=== PATIENT | female | born 1975 | race Caucasian/White ===

== ENCOUNTER 2017-09-26 13:16 | Day surgery (SDC) | payer BC ==
[2017-09-26] MEDS ORDERED: Lactated Ringers 1,000 ML IV SCH ×2 (13:30→14:45)
--- NOTE | 2017-09-26 14:06 | PCM.PREANE ---
Preanesthetic Assessment - Anesthesia/Transfusion/Family Hx Anesthesia History: No Prior Anesthesia Family History of Anesthesia Reaction: No Transfusion History: No Prior Transfusion(s) - Review of Systems General: No Symptoms Pulmonary: No Symptoms Cardiovascular: No Symptoms Gastrointestinal: No Symptoms Neurological: No Symptoms Other: Reports: None - Physical Assessment NPO Status Date: 09/25/17 O2 Sat by Pulse Oximetry: 99 Respiratory Rate: 16 Vital Signs: Last Vital Signs Temp 36.3 C 09/26/17 14:02 Pulse 72 09/26/17 14:02 Resp 16 09/26/17 14:02 BP 131/61 09/26/17 14:02 Pulse Ox 99 09/26/17 14:02 Height: 1.52 m Weight: 75.75 kg ASA Class: 1 Mental Status: Alert & Oriented x3 Airway Class: Mallampati = 1 Dentition: Reports: Normal Dentition ROM/Head Extension: Full Lungs: Clear to Auscultation, Normal Respiratory Effort Cardiovascular: Regular Rate, Regular Rhythm - Lab Values: Laboratory Last Values WBC 7.12 K/uL (4.0-11.0) 09/26/17 13:48 RBC 4.37 M/uL (4.30-5.90) 09/26/17 13:48 Hgb 13.1 g/dL (12.0-16.0) 09/26/17 13:48 Hct 37.9 % (36.0-46.0) 09/26/17 13:48 MCV 86.7 fL (80.0-98.0) 09/26/17 13:48 MCH 30.0 pg (27.0-32.0) 09/26/17 13:48 MCHC 34.6 g/dL (31.0-37.0) 09/26/17 13:48 RDW Std Deviation 44.2 fl (28.0-62.0) 09/26/17 13:48 RDW Coeff of Brenda 14 % (11.0-15.0) 09/26/17 13:48 Plt Count 295 K/uL (150-400) 09/26/17 13:48 MPV 10.00 fL (7.40-12.00) 09/26/17 13:48 Nucleated RBC % 0.0 /100WBC 09/26/17 13:48 Nucleated RBCs # 0 K/uL 09/26/17 13:48 - Allergies Allergies/Adverse Reactions: Allergies Allergy/AdvReac Type Severity Reaction Status Date / Time No Known Allergies Allergy Verified 09/25/17 10:08 - Anesthesia Plan Pre-Op Medication Ordered: None - Acknowledgements Anesthesia Type Planned: General Anesthesia Pt an Appropriate Candidate for the Planned Anesthesia: Yes Alternatives and Risks of Anesthesia Discussed w Pt/Guardian: Yes Pt/Guardian Understands and Agrees with Anesthesia Plan: Yes PreAnesthesia Questionnaire Musculoskeletal History: Reports: Fracture Other Musculoskeletal History: hx of fx arm Endocrine/Metabolic History: Reports: Obesity/BMI 30+ - SUBSTANCE USE Smoking Status *Q: Never Smoker Recreational Drug Use History: No - HOME MEDS Home Medications: Home Meds Multivitamin [Multivitamins] 1 tab PO DAILY 09/25/17 [History] - CURRENT (IN HOUSE) MEDS Current Meds: Current Medications Lactated Ringer's (Ringers, Lactated) 1,000 mls @ 100 mls/hr IV ASDIRECTED [facility] Last Admin: 09/26/17 14:04 Dose: 100 mls/hr
[2017-09-26] MEDS ORDERED: Propofol 200 MG/20 ML SDV ONE (14:21)
[2017-09-26] MEDS ORDERED: Ondansetron 4 MG/2 ML SDV ONE (14:21)
[2017-09-26] MEDS ORDERED: Lidocaine 2% 5 ML SDV ONE (14:21)
[2017-09-26] MEDS ORDERED: Midazolam 1 MG/ML 2 ML SDV ONE (14:21)
[2017-09-26] MEDS ORDERED: fentaNYL 100 MCG/2 ML SDV ONE (14:21)
[2017-09-26] MEDS ORDERED: Sodium Chloride 0.9% 2.5 ML Syringe FLUSH PRN (14:45)
[2017-09-26] MEDS ORDERED: fentaNYL 100 MCG/2 ML SDV IVPUSH PRN (14:45)
[2017-09-26] MEDS ORDERED: Sodium Chloride 0.9% 10 ML Syringe FLUSH PRN (14:45)
--- NOTE | 2017-09-26 15:58 | PCM.POSTAN ---
POST ANESTHESIA ASSESSMENT - MENTAL STATUS Mental Status: Alert, Oriented - RESPIRATORY Respiratory Status: Respiratory Rate WNL, Airway Patent, O2 Saturation Stable - CARDIOVASCULAR CV Status: Pulse Rate WNL, Blood Pressure Stable - GASTROINTESTINAL GI Status: No Symptoms - POST OP HYDRATION Hydration Status: Adequate & Stable
--- NOTE | 2017-09-26 16:19 | PCM.OPNOTE ---
- General Post-Op/Procedure Note Date of Surgery/Procedure: 09/26/17 Operative Procedure(s): Suction D&C Findings: Products of conception--on frozen path specimen, chorionic villi present Pre Op Diagnosis: Abnormally rising quant hcg levels. Early miscarriage vs ectopic Post-Op Diagnosis: Completed SAB Anesthesia Technique: General LMA Primary Surgeon: Rosalva Shukla Fluid Replacement, Intraop: 1,500 EBL in mLs: 15 Complications: none known Condition: Good Free Text/Narrative:: Intake & Output 09/26/17 09/26/17 09/26/17 06:59 14:59 22:59 Intake Total 1999 Balance 1999 Dictation [id number]
--- NOTE | 2017-09-26 16:21 | PCM48HPAN ---
Post Anesthesia Note - EVALUATION WITHIN 48HRS OF ANESTHETIC Vital Signs in Normal Range: Yes Patient Participated in Evaluation: Yes Respiratory Function Stable: Yes Airway Patent: Yes Cardiovascular Function Stable: Yes Hydration Status Stable: Yes Pain Control Satisfactory: Yes Nausea and Vomiting Control Satisfactory: Yes Mental Status Recovered: Yes Resp Rate: 14
--- NOTE | 2017-09-29 15:28 | OR ---
SURGEON: Rosalva Shukla M.D. DATE OF PROCEDURE: 09/26/2017 PREOPERATIVE DIAGNOSES: 1. Abnormally rising quantitative HCG levels. 2. Early miscarriage versus ectopic . POSTOPERATIVE DIAGNOSIS: Completed spontaneous . ANESTHESIA: General LMA. ESTIMATED BLOOD LOSS: 15 mL. FLUIDS: 1500 mL crystalloid. COMPLICATIONS: None. FINDINGS: Products of conception with frozen pathology. Chorionic villi is present within the specimen, confirming an intrauterine . DISPOSITION: The patient to PACU, stable. PROCEDURE IN DETAIL: This is a 42-year-old female, who has been evaluated in clinic for bleeding in the first trimester. It was noted that she only had a single empty intrauterine gestational sac in the lower uterine segment on ultrasound serially. Adnexa appeared normal. However, quantitative hCG levels have been slowly climbing, but not rising normally, fairly stagnant overall. Therefore, at this juncture, I had discussed with the patient the concerns for possible ectopic gestation and that further evaluation with D and C to see whether or not chorionic villi is present within the endometrial cavity, would help us decide whether this is an intrauterine gestation or ectopic. She understand that the is not developing normally. The patient voiced understanding. Proper consent obtained. The patient taken to the operating room, where she underwent general LMA, was placed in modified dorsolithotomy position, was prepped and draped in the usual sterile fashion. SCDs to lower extremities. Time-out was performed after bladder being drained. A speculum was introduced in the vagina. Cervix was visualized. Anterior lip of cervix was grasped with an Allis clamp. The cervix gently dilated to 8 mm. Using a 7 mm curved curette, the endometrial cavity was emptied of products of conception. These will be sent fresh to Pathology for frozen analysis. Gentle curettage was also performed. The uterus was felt to be adequately evacuated. Hemostasis appears evident. All instruments were removed from the vagina. Sponge, instrument, and needle count was correct x2. The patient tolerated the procedure well. The pathologist did call back and note there is chorionic villi present in the specimen, this does confirm an intrauterine gestation. JANEE / CONRAD /[id number]
== END 2017-09-26 17:02 | disposition home or self-care (01) ==
LOC: MW.SDS 13:16
PROVIDERS: ATTEND Obstetrics & Gynecology
DX: O03.9 Complete or unspecified spontaneous abortion without complication (principal); Z79.899 Other long term (current) drug therapy
CPT/HCPCS: 36415; 59812; 85027; J2250; J2405; J3010; J7120; 01965; 88305; 88331; J2704

== ENCOUNTER 2018-11-25 03:04 | Inpatient (IN) | payer BC ==
[2018-11-25] MEDS ORDERED: Terbutaline 1 MG/ML SDV SUBCUT PRN (10:54)
[2018-11-25] MEDS ORDERED: Sodium Chloride 0.9% 10 ML Syringe FLUSH PRN (10:54)
[2018-11-25] MEDS ORDERED: Tranexamic Acid 1,000 MG in Sodium Chloride 0.9% 100 ML IV PRN (10:54)
[2018-11-25] MEDS ORDERED: Carboprost Tromethamine 250 MCG/1 ML Amp IM PRN (10:54)
[2018-11-25] MEDS ORDERED: Methylergonovine 0.2 MG/1 ML Amp IM PRN (10:54)
[2018-11-25] MEDS ORDERED: Sodium Chloride 0.9% 2.5 ML Syringe FLUSH PRN (10:54)
[2018-11-25] MEDS ORDERED: Misoprostol 200 MCG Tab PO PRN (10:54)
[2018-11-25] MEDS ORDERED: Butorphanol 1 MG/ML SDV IVPUSH PRN (10:54)
[2018-11-25] MEDS ORDERED: Sodium Chloride 0.9% 10 ML SDV IV PRN (10:54)
[2018-11-25] MEDS ORDERED: Lidocaine 1% 50 ML MDV INJECT PRN (10:54)
[2018-11-25] MEDS ORDERED: Nalbuphine 10 MG/1 ML Vial IVPUSH PRN (10:54)
[2018-11-25] MEDS ORDERED: Water For Irrigation,Sterile 1,000 ML Container IRR PRN (10:54)
[2018-11-25] MEDS ORDERED: Oxytocin/0.9 % Sodium Chloride 30 UNIT/500 ML BAG IV SCH ×2 (11:00)
[2018-11-25] MEDS ORDERED: Lactated Ringers 1,000 ML IV SCH (11:00)
[2018-11-25] MEDS: Misoprostol 25 MCG (1/4 of 100 MCG) Tab VAG PRN ×2 (11:52→16:03)
[2018-11-26] MEDS ORDERED: Ondansetron 4 MG/2 ML SDV IVPUSH PRN (03:48)
[2018-11-26] MEDS ORDERED: Ibuprofen 400 MG Tab PO PRN (03:48)
[2018-11-26] MEDS ORDERED: Acetaminophen 500 MG Tab PO PRN ×2 (03:48)
[2018-11-26] MEDS ORDERED: Ibuprofen 800 MG Tab PO PRN (03:48)
[2018-11-26] MEDS ORDERED: oxyCODONE 5 MG Tab PO PRN (03:48)
[2018-11-26] MEDS ORDERED: Benzocaine/Menthol 20%-0.5% Spray 78 GM Cannister TOP PRN (03:48)
[2018-11-26] MEDS ORDERED: Docusate Sodium 100 MG Cap PO PRN (03:48)
[2018-11-26] MEDS ORDERED: Witch Hazel Medicated Pads 40/Jar TOP PRN (03:48)
[2018-11-26] MEDS ORDERED: Lanolin 100% Cream 7 GM Tube TOP PRN (03:48)
[2018-11-26] MEDS ORDERED: Bisacodyl 10 MG Supp RECTAL PRN (03:48)
--- NOTE | 2018-11-26 04:22 | OR ---
SURGEON: Rosalva Shukla M.D. DATE OF PROCEDURE: 11/26/2018 PREOPERATIVE DIAGNOSES: 1. A 38 and 4/7th weeks' intrauterine . 2. Gestational hypertension. 3. Advanced maternal age. POSTOPERATIVE DIAGNOSES: 1. A 38 and 4/7th weeks' intrauterine . 2. Gestational hypertension. 3. Advanced maternal age. PROCEDURE: Spontaneous vaginal delivery, intact perineum. PRIMARY SURGEON: Rosalva Shukla M.D. ANESTHESIA: None. ESTIMATED BLOOD LOSS: 300 mL. FINDINGS: Viable female. scores 9 at one minute, 10 at five minutes. Weight is pending. Spontaneous delivery, intact placenta, 3-vessel cord. DISPOSITION: to nursery, mom in LDRP. PROCEDURE DETAILS: Jeremy is a 43-year-old G6, P 4-0-1-4 at 38 and 3/7th weeks' gestational age upon her presentation to her routine OB visit. At that time, she was found to have elevated blood pressures in the 140s to 150s over 80s to 90s. No proteinuria. Remainder of PIH labs were performed and are reassuring overall except uric acid slightly elevated at 5.1. Given term gestation with elevated blood pressures indicating gestational hypertension, advanced maternal age, after discussion, elected to proceed with induction of labor. Risks of procedure were discussed with her. Proper consent obtained. The patient presented to Labor and Delivery and was found to be approximately 1 cm, 60% effaced, -3 station. Therefore, underwent Cytotec ripening, responded nicely to this, and after the second dose of Cytotec, was found to be 3 cm, 70% effaced, -3 station. Therefore, Pitocin augmentation was initiated. The patient responded nicely to this and shortly after 11:00 p.m. had spontaneous rupture of membranes. Large amount of clear fluid was noted. Had category 1 heart tones. Blood pressures were more reassuring as the patient remained in the supine positioning running in the 120s to 130s over 70s to 80s. The patient continued to progress nicely and shortly before 3:00 a.m. was found to be 8 cm dilated with the urge to push. I was called for delivery. Upon my arrival, the patient was found to be complete, feeling great urge to push. With pushing efforts was able to deliver infant's head spontaneously atraumatically followed by anterior and posterior shoulder, remaining of the body without difficulty. The 's oropharynx and nares bulb suctioned. Loose nuchal cord x1 was reduced manually. The was handed off to her mother with attending nursing staff at her side. After delay, cord was clamped x2 and cut. Cord arterial, cord venous, cord blood sampling was obtained. Light pressure was applied while the placenta was delivered spontaneously intact. Vigorous fundal uterine massage was then applied while 30 units of Pitocin was delivered in 500 mL of IV fluid. Upon inspection of cervix, vaginal sidewalls, and perineum, these were found to be intact. The patient tolerated the procedure well. She will remain in LDRP, monitoring her blood pressures closely. to nursery. Sponge and instrument count were correct. JANEE / CONRAD /[id number]
--- NOTE | 2018-11-27 08:11 | PCM.PNPP ---
- General Info Date of Service: 11/27/18 Functional Status: Reports: Pain Controlled, Tolerating Diet, Ambulating, Urinating - Review of Systems General: Denies: Fever, Weakness Pulmonary: Denies: Shortness of Breath Cardiovascular: Denies: Chest Pain, Palpitations, Lightheadedness Gastrointestinal: Denies: Abdominal Pain, Nausea, Vomiting Genitourinary: Reports: No Symptoms Skin: Reports: No Symptoms Neurological: Reports: No Symptoms Psychiatric: Reports: No Symptoms - General Info Date of Service: 11/27/18 - Patient Data Vital Signs - Most Recent: Last Vital Signs Temp 36.3 C 11/27/18 07:52 Pulse 76 11/27/18 07:52 Resp 16 11/27/18 07:52 BP 120/72 11/27/18 07:52 Pulse Ox 96 11/27/18 07:52 Weight - Most Recent: 99.246 kg Lab Results - Last 24 Hours: Laboratory Results - last 24 hr 11/26/18 11/26/18 Range/Units 04:24 12:01 Hgb 10.6 L (12.0-16.0) g/dL Hct 31.9 L (36.0-46.0) % Screen NEGATIVE (NEGATIVE) RhIG Candidate? YES Rhogam Indicated YES, BABY RH POS H Med Orders - Current: Current Medications Acetaminophen (Tylenol Extra Strength) 500 mg PO Q4H PRN PRN Reason: Pain Acetaminophen (Tylenol Extra Strength) 1,000 mg PO Q4H PRN PRN Reason: Pain Benzocaine/Menthol (Dermoplast Pain Relief 20%-0.5% [place]) 78 gm TOP ASDIRECTED PRN PRN Reason: Perineal Comfort Measure Last Admin: 11/26/18 21:02 Dose: 1 applic Bisacodyl (Dulcolax) 10 mg RECTAL ONETIME PRN PRN Reason: Constipation Carboprost Tromethamine (Hemabate Ds) 250 mcg IM ASDIRECTED PRN PRN Reason: Post Hemorrhage Docusate Sodium (Colace) 100 mg PO BID PRN PRN Reason: Constipation Last Admin: 11/26/18 21:03 Dose: 100 mg Emollient Ointment (Lansinoh Hpa) 0 gm TOP ASDIRECTED PRN PRN Reason: Sore Nipples Lactated Ringer's (Ringers, Lactated) 1,000 mls @ 150 mls/hr IV ASDIRECTED CONNIE Last Admin: 11/25/18 21:36 Dose: 150 mls/hr Oxytocin/Sodium Chloride (Oxytocin 30 Unit/500 Ml-Ns) 30 unit in 500 mls @ 999 mls/hr IV TITRATE CONNIE Oxytocin/Sodium Chloride (Oxytocin 30 Unit/500 Ml-Ns) 30 unit in 500 mls @ 2 mls/hr IV TITRATE CONNIE; Protocol Last Titration: 11/26/18 04:05 Dose: 999 munits/min, 999 mls/hr Tranexamic Acid 1,000 mg/ (Sodium Chloride) 110 mls @ 660 mls/hr IV ONETIME PRN PRN Reason: Bleeding Ibuprofen (Motrin) 400 mg PO Q4H PRN PRN Reason: Pain Ibuprofen (Motrin) 800 mg PO Q6H PRN PRN Reason: Pain Lidocaine HCl (Xylocaine 1%) 50 ml INJECT ONETIME PRN PRN Reason: Laceration repair Methylergonovine Maleate (Methergine) 0.2 mg IM ASDIRECTED PRN PRN Reason: Post Hemorrhage Ondansetron HCl (Zofran) 4 mg IVPUSH Q6H PRN PRN Reason: Nausea/Vomiting Oxycodone HCl (Oxycodone) 5 mg PO Q2H PRN PRN Reason: Pain Sodium Chloride (Saline Flush) 10 ml FLUSH ASDIRECTED PRN PRN Reason: Keep Vein Open Sodium Chloride (Saline Flush) 2.5 ml FLUSH ASDIRECTED PRN PRN Reason: Keep Vein Open Sodium Chloride (Normal Saline) 10 ml IV ASDIRECTED PRN PRN Reason: IV Use Sterile Water (Sterile Water For Irrigation) 1,000 ml IRR ASDIRECTED PRN PRN Reason: delivery Witmanish Ortega (Tucks) 1 pad TOP ASDIRECTED PRN PRN Reason: comfort care Last Admin: 11/26/18 21:02 Dose: 1 applic Discontinued Medications Butorphanol Tartrate (Stadol) 1 mg IVPUSH Q1H PRN PRN Reason: Pain Misoprostol (Cytotec) 200 mcg PO ONETIME PRN PRN Reason: Post Hemorrhage Misoprostol (Cytotec) 25 mcg VAG Q4H PRN PRN Reason: Cervical Ripening Last Admin: 11/25/18 16:03 Dose: 25 mcg Nalbuphine HCl (Nubain) 10 mg IVPUSH Q1H PRN PRN Reason: Pain (severe 7-10) Last Admin: 11/26/18 01:37 Dose: 10 mg Terbutaline Sulfate (Brethine) 0.25 mg SUBCUT ASDIRECTED PRN PRN Reason: Tacysystole - Interaction Support Person: Significant Other - Recovery Exam Fundal Tone: Firm Fundal Level: 1 Fingerbreadths Below Umbilicus Fundal Placement: Midline Lochia Amount: Scant Lochia Color: Rubra/Red Perineum Description: Intact, Minimal Bruising/Swelling Bladder Status: Voiding - Exam General: Alert, Oriented Lungs: Normal Respiratory Effort Cardiovascular: Regular Rate, Regular Rhythm GI/Abdominal Exam: Soft, Non-Tender Extremities: Pedal Edema (trace). No: Roc's Sign Skin: Warm, Dry, Intact Neurological: No New Focal Deficit Psy/Mental Status: Alert, Normal Affect - Problem List & Annotations (1) Vaginal delivery SNOMED Code(s): 872895787 Code(s): O80 - ENCOUNTER FOR FULL-TERM UNCOMPLICATED DELIVERY Status: Acute Current Visit: Yes - Problem List Review Problem List Initiated/Reviewed/Updated: Yes - My Orders Last 24 Hours: My Active Orders 11/27/18 08:09 Ready for Discharge [RC] PER UNIT ROUTINE - Assessment Assessment:: PPD 1 status post Gestational HTN, BPs normalized - Plan Plan:: Patient is doing well overall, discharge to home today. Follow up at [facility] 6 weeks. Infection and bleeding warnings reviewed. Discharge instructions reviewed. She will check BPs daily at home and call if >140/90.
== END 2018-11-27 10:50 | disposition home or self-care (01) | DRG 560 ==
LOC: MW.OB 03:04 → OBSVTOIN 11-26 03:04 → MW.OB 11-26 14:48
PROVIDERS: ADMIT Obstetrics & Gynecology; ATTEND Obstetrics & Gynecology
PROC: 10E0XZZ Delivery of Products of Conception, External Approach (ICD-10-PCS; principal; 2018-11-26)
DX: O13.4 Gestational [pregnancy-induced] hypertension without significant proteinuria, complicating childbirth (principal); Z3A.38 38 weeks gestation of pregnancy; Z37.0 Single live birth; O69.81X0 Labor and delivery complicated by cord around neck, without compression, not applicable or unspecified
CPT/HCPCS: 36415; 59025; 59409; 82803; 85014; 85018; 85027; 85460; 86850; 86900; 86901; A9270-GY; J2300; J2590; J2792; J7120